=== PATIENT | male | born 1950 | race American Indian/Alaskan Native ===

== ENCOUNTER 2021-11-24 21:29 | Emergency (ER) | payer BC, MEDICARE ==
[2021-11-24 23:00] VITALS: BP 141/80
[2021-11-25] MEDS ORDERED: ACETAMINOPHEN 325 MG TAB PO ONE (00:19)
[2021-11-25] MEDS ORDERED: IBUPROFEN 400 MG TAB PO ONE (00:19)
--- NOTE | 2021-11-25 00:23 | Emergency Department Report ---
ED General Adult HPI - General Chief complaint: Urogenital-Male Stated complaint: GROIN PAIN Time Seen by Provider: 11/24/21 23:57 Source: patient, RN notes reviewed, old records reviewed Mode of arrival: Ambulatory Limitations: No Limitations - History of Present Illness Initial comments: This is a pleasant 71-year-old gentleman who presents to the ER today with a complaint of nontraumatic right-sided inguinal pressure and discomfort. No testicular pain. No abdominal pain. No urinary symptoms. Has not taken any pain medication [id number]. No additional injuries or complaints. -: hour(s), days(s) Location: right (Right inguinal region) Quality: other (Cramping) Consistency: intermittent Improves with: none Worsens with: none Associated Symptoms: denies other symptoms - Related Data Home Medications Medication Instructions Recorded Confirmed Last Taken HYDROcodone/APAP 5-325 5 mg PO DAILY PRN 05/21/15 05/21/15 Unknown glipiZIDE [Glucotrol] 5 mg PO BID 05/21/15 05/21/15 Unknown metFORMIN [Glucophage] 1,000 mg PO BID 05/21/15 05/21/15 Unknown Previous Rx's Medication Instructions Recorded Last Taken Type oxyCODONE /ACETAMINOPHEN [Percocet 1 tab PO Q6HR PRN #20 tablet 05/21/15 Unknown Rx 5/325] Allergies Allergy/AdvReac Type Severity Reaction Status Date / Time oxycodone AdvReac Dizziness Unverified 09/03/15 07:39 ED Review of Systems ROS: Stated complaint: GROIN PAIN Other details as noted in HPI Comment: All other systems reviewed and negative Gastrointestinal: as per HPI (Right-sided inguinal pressure and cramping) Genitourinary: as per HPI ED Past Medical Hx - Past Medical History Hx Diabetes: Yes - Surgical History Additional Surgical History: Neck/ R. hand and knee - Social History Smoking Status: Never Smoker Substance Use Type: Marijuana - Medications Home Medications: Home Medications Medication Instructions Recorded Confirmed Last Taken Type HYDROcodone/APAP 5-325 5 mg PO DAILY PRN 05/21/15 05/21/15 Unknown History glipiZIDE [Glucotrol] 5 mg PO BID 05/21/15 05/21/15 Unknown History metFORMIN [Glucophage] 1,000 mg PO BID 05/21/15 05/21/15 Unknown History oxyCODONE /ACETAMINOPHEN [Percocet 1 tab PO Q6HR PRN #20 tablet 05/21/15 Unknown Rx 5/325] ED Physical Exam - General Limitations: No Limitations General appearance: alert, in no apparent distress - Head Head exam: Present: atraumatic, normocephalic - Eye Eye exam: Present: normal appearance, EOMI. Absent: conjunctival injection, nystagmus - ENT ENT exam: Present: normal exam, normal orophraynx, mucous membranes moist, normal external ear exam - Neck Neck exam: Present: normal inspection, full ROM. Absent: tenderness, meningismus - Respiratory Respiratory exam: Present: normal lung sounds bilaterally. Absent: respiratory distress, wheezes, rales, rhonchi, stridor, decreased breath sounds - Cardiovascular Cardiovascular Exam: Present: regular rate, normal rhythm, normal heart sounds. Absent: bradycardia, tachycardia, irregular rhythm, systolic murmur, diastolic murmur, rubs, gallop - GI/Abdominal GI/Abdominal exam: Present: soft, normal bowel sounds, hernia (There is a reducible right-sided inguinal hernia which is not tender). Absent: distended, tenderness, guarding, rebound, rigid, pulsatile mass - Rectal Rectal exam: Present: deferred - exam: Present: normal inspection, other (There is normal testicular lie. There is normal cremasteric reflex. There is no testicular tenderness. There is no testicular swelling). Absent: testicular tenderness External exam: Present: normal external exam, other (Patient provides consent for genital examination). Absent: erythema, swelling - Extremities Exam Extremities exam: Present: normal inspection, full ROM, other (2+ pulses noted in the bilateral upper and lower extremities. There is no palpable cord. negative Homans sign. Muscular compartments are soft. The pelvis is stable.). Absent: pedal edema, calf tenderness - Back Exam Back exam: Present: normal inspection, full ROM. Absent: tenderness, CVA tenderness (R), CVA tenderness (L), paraspinal tenderness, vertebral tenderness - Neurological Exam Neurological exam: Present: alert, oriented X3, normal gait, other (No facial droop. Tongue midline. Extraocular movements intact bilaterally. Facial sensation intact to light touch in V1, V2, V3 distribution bilaterally. 5 and a 5 strength in 4 extremities. Sensation intact to light touch in 4 extremities.). Absent: motor sensory deficit - Psychiatric Psychiatric exam: Present: normal affect, normal mood - Skin Skin exam: Present: warm, dry, intact, normal color. Absent: rash ED Course Vital Signs 11/24/21 22:52 Temperature 98.3 F Pulse Rate 87 Respiratory 18 Rate Blood Pressure 141/80 O2 Sat by Pulse 97 Oximetry ED Medical Decision Making - Lab Data Vital Signs 11/24/21 22:52 Temperature 98.3 F Pulse Rate 87 Respiratory 18 Rate Blood Pressure 141/80 O2 Sat by Pulse 97 Oximetry - Medical Decision Making Differential diagnosis, include but not limited to: Sprain, strain, inguinal hernia Assessment and plan: 71-year-old gentleman, who is afebrile, with reassuring vital signs, with no abdominal tenderness, rebound or guarding, no nausea, vomiting or diarrhea, no constipation, normal bowel sounds, normal testicular exam, with right-sided inguinal pain, and very minimal reducible right-sided inguinal hernia. Tylenol, Motrin, avoidance of Valsalva, outpatient follow-up with surgery for e elective evaluation. He is nontender at this time, no acute distress, there is no redness, pus or streaking Critical care attestation.: If time is entered above; I have spent that time in minutes in the direct care of this critically ill patient, excluding procedure time. ED Disposition Clinical Impression: Right groin pain Disposition: 01 HOME / SELF CARE / HOMELESS Is pt being admited?: No Does the pt Need Aspirin: No Condition: Good Additional Instructions: Patient may take [id number] Tylenol or ibuprofen as needed for physical pain. Wear supportive briefs, and avoid activities that cause excessive pressure, such as straining, excessive coughing or sneezing. Patient may have a very small right-sided inguinal hernia, and should follow-up with a general surgeon for elective outpatient evaluation within the next month to 6 weeks. Please return to the emergency room right away with new pain, worsened pain, migration of pain, projectile vomiting, change in mental status, confusion, inability tolerate liquid feeds, new, worsened or different symptoms not present on the initial emergency room evaluation Referrals: [facility] [Provider Group] - 3-5 Days GENNY WATKINS DO [Staff Physician] - 3-5 Days
== END 2021-11-25 01:07 | disposition home or self-care (01) ==
LOC: ED 21:29
DX: R10.31 Right lower quadrant pain (principal); E11.9 Type 2 diabetes mellitus without complications; Z91.09 Other allergy status, other than to drugs and biological substances
CPT/HCPCS: 99282